=== PATIENT | male | born 1950 | race Caucasian/White ===

== ENCOUNTER → 2017-09-25 | Day surgery (SDC) | payer OTHER ==
[~2017-09-25] MED LIST: Lactated Ringers 1,000 ML IV SCH; Propofol 200 MG/20 ML SDV IV ONE
--- NOTE | 2017-09-25 14:17 | OR ---
DATE OF OPERATION: 09/25/2017 PREOPERATIVE DIAGNOSIS: FOLLOW UP POLYPS. POSTOPERATIVE DIAGNOSIS: FOLLOW UP POLYPS. SURGEON: Álvaro Savage MD PROCEDURE: FULL-LENGTH COLONOSCOPY. 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 COMPLICATIONS: None. SPECIMEN: None. FINDINGS: Normal full length colonoscopy. RECOMMENDATIONS: Follow up colonoscopy routine per ACS guidelines in five years due to family history of colon cancer. INDICATIONS: The patient has a history of multiple colonoscopies in the past with polyp removal. He is due for a routine followup in that regard. He also has a family history of colon cancer in his father. PROCEDURE: THE PATIENT WAS PREPPED AND DRAPED, PLACED IN THE LEFT LATERAL DECUBITUS POSITION. A LUBRICATED OLYMPUS COLONOSCOPE WAS INSERTED AND EASILY ADVANCED TO THE CECUM. DIRECT VISUALIZATION OF THE ILEOCECAL VALVE AND APPENDICEAL ORIFICE WAS ACCOMPLISHED. THE BOWEL PREP WAS ADEQUATE. UPON WITHDRAWAL, THROUGHOUT THE ENTIRE LENGTH OF THE COLON, I COULD FIND NO SIGNS OF ANY POLYPS, MASS, ULCERATION, OR BLEEDING SITES. NO VASCULAR ABNORMALITIES OR SIGNS OF COLITIS. THERE WERE NO SIGNIFICANT DIVERTICULA. THE RECTAL VAULT APPEARED BENIGN. RETROFLEXION OF THE SCOPE IN THE RECTUM SHOWED NO PERIANAL LESIONS. AIR WAS SUCTIONED, SCOPE REMOVED WITHOUT COMPLICATION. ADRIANNE/BEATRIS /[id number]
== END ==
LOC: CC.SDS 09:25
PROVIDERS: ATTEND Family Medicine
DX: Z12.11 Encounter for screening for malignant neoplasm of colon (principal); Z86.010 Personal history of colon polyps; G47.30 Sleep apnea, unspecified
CPT/HCPCS: 45378; 93005; J7120; J2704

== ENCOUNTER → 2021-10-25 | Day surgery (SDC) | payer MEDICARE, BC ==
[~2021-10-25] MED LIST changes: +Ketamine 200 MG/20 ML MDV ONE; -Propofol 200 MG/20 ML SDV IV ONE; +Propofol 200 MG/20 ML SDV ONE; +fentaNYL 100 MCG/2 ML SDV ONE
== END ==
LOC: CC.SDS 06:54
PROVIDERS: ATTEND Family Medicine
DX: Z12.11 Encounter for screening for malignant neoplasm of colon (principal); D12.3 Benign neoplasm of transverse colon; N40.0 Benign prostatic hyperplasia without lower urinary tract symptoms; G89.29 Other chronic pain; M54.50 Low back pain, unspecified; E11.40 Type 2 diabetes mellitus with diabetic neuropathy, unspecified; I10 Essential (primary) hypertension; E78.5 Hyperlipidemia, unspecified; R79.89 Other specified abnormal findings of blood chemistry; G47.33 Obstructive sleep apnea (adult) (pediatric); G47.00 Insomnia, unspecified; Z79.82 Long term (current) use of aspirin; Z79.899 Other long term (current) drug therapy; Z79.84 Long term (current) use of oral hypoglycemic drugs; Z80.0 Family history of malignant neoplasm of digestive organs; Z98.890 Other specified postprocedural states
CPT/HCPCS: 00812; 88305; J2704; J3010; J7120

== ENCOUNTER 2024-10-14 06:54 | Day surgery (SDC) | payer MEDICARE, BC ==
[2024-10-14] MEDS: Lactated Ringers 1,000 ML IV SCH (07:10)
[2024-10-14] MEDS ORDERED: Ketamine 200 MG/20 ML MDV ONE (07:32)
[2024-10-14] MEDS ORDERED: Midazolam 1 MG/ML 2 ML SDV ONE (07:32)
[2024-10-14] MEDS ORDERED: fentaNYL 50 MCG/ML SDV ONE (07:32)
[2024-10-14] MEDS ORDERED: Flumazenil 0.1 MG/ML 10 ML MDV ONE (07:32)
[2024-10-14] MEDS ORDERED: Propofol 200 MG/20 ML SDV ONE ×2 (07:32)
== END 2024-10-14 09:03 | disposition home or self-care (01) ==
LOC: CC.SDS 06:54
PROVIDERS: ATTEND Family Medicine
DX: Z12.11 Encounter for screening for malignant neoplasm of colon (principal); Z86.0100 Personal history of colon polyps, unspecified; I10 Essential (primary) hypertension; E11.9 Type 2 diabetes mellitus without complications; Z79.84 Long term (current) use of oral hypoglycemic drugs; Z79.899 Other long term (current) drug therapy
CPT/HCPCS: 00812; 99100; J2250; J2704; J3010; J3490; J7120

== ENCOUNTER 2025-02-16 17:41 | Emergency (ER) | payer MEDICARE, BC ==
[2025-02-16 18:19] LABS: BASOPHILS ABSOLUTE AUTO 0.03 10^3/uL (0.00-0.50); BASOPHILS PERCENT AUTO 0.4 % (0-1); EOSINOPHILS ABSOLUTE AUTO 0.19 10^3/uL (0.00-1.50); EOSINOPHILS PERCENT AUTO 2.4 % (0-6); HEMATOCRIT 42.5 % (42.0-52.0); HEMOGLOBIN 14.1 g/dL (14.0-18.0); IMMATURE GRAN ABSOLUTE AUTO 0.03 10^3/uL (0.00-0.49); IMMATURE GRAN PERCENT AUTO 0.4 % (0.0-4.9); LYMPHOCYTES ABSOLUTE AUTO 1.86 10^3/uL (0.60-5.00); LYMPHOCYTES PERCENT AUTO 23.6 % (24-44); MEAN CORPUSCULAR HGB CONC 33.2 g/dL (32.0-36.0); MEAN CORPUSCULAR VOLUME 90.4 fL (83.0-97.0); MONOCYTES ABSOLUTE AUTO 0.59 10^3/uL (0.00-1.50); MONOCYTES PERCENT AUTO 7.5 % (0-10); NEUTROPHILS ABSOLUTE AUTO 5.19 x10^3/uL (1.80-8.00); NEUTROPHILS PERCENT AUTO 65.7 % (41-71); PLATELET COUNT,PLT 181 10^3/uL (150-400); WHITE BLOOD CELL COUNT,WBC 7.9 10^3/uL (4.0-11.0)
[2025-02-16 18:42] LABS: ALANINE AMINOTRANSFERASE,ALT 34 U/L (12-78); ALBUMIN 3.6 g/dL (3.4-5.0); ALKALINE PHOSPHATASE 87 U/L (46-116); ASPARTATE AMNIOTRANSFERASE,AST 18 U/L (15-37); BILIRUBIN TOTAL 0.3 mg/dL (0.0-1.0); BLOOD UREA NITROGEN,BUN 20 mg/dL (7-18); CALCIUM 9.6 mg/dL (8.4-10.1); CARBON DIOXIDE,CO2 32 mmol/L (21-32); CHLORIDE,CL 102 mEq/L (98-106); CREATININE 1.1 mg/dL (0.7-1.3); ESTIMATED GFR 71 mL/min (>=60); ETHANOL BLOOD MEDICAL 20 mg/dL (0-3); GLUCOSE RANDOM 141 mg/dL (75-99); MAGNESIUM 1.8 mg/dL (1.8-2.4); PROTEIN TOTAL,TP 6.6 g/dL (6.4-8.2); SODIUM,NA 141 mEq/L (136-145)
[2025-02-16] MEDS: Diphtheria,Pertussis(Acell),Tetanus Vaccine 0.5 ML Syringe IM ONE (18:49)
[2025-02-16] MEDS: Lidocaine 1% with EPINEPHrine 1:100,000 10 ML MDV INJECT ONE (18:51)
[2025-02-16 21:34] LABS: APPEARANCE,URINE CLEAR (CLEAR); BILIRUBIN,URINE NEGATIVE (NEGATIVE); COLOR,URINE YELLOW (YELLOW); GLUCOSE,URINE NEGATIVE (NEGATIVE); KETONES,URINE 15 mg/dL (NEGATIVE); LEUKOCYTE ESTERASE,URINE NEGATIVE (NEGATIVE); NITRITE,URINE NEGATIVE (NEGATIVE); OCCULT BLOOD,URINE NEGATIVE (NEGATIVE); PH,URINE 5.5 (4.5-8.0); PROTEIN,URINE NEGATIVE (NEGATIVE); UROBILINOGEN,URINE 0.2 EU/dL (0.2-1.0)
== END 2025-02-16 21:51 | disposition home or self-care (01) ==
LOC: CC.ED 19:45
DX: S01.81XA Laceration without foreign body of other part of head, initial encounter (principal); S09.90XA Unspecified injury of head, initial encounter; Z23 Encounter for immunization; Z79.84 Long term (current) use of oral hypoglycemic drugs; Z79.899 Other long term (current) drug therapy; W18.40XA Slipping, tripping and stumbling without falling, unspecified, initial encounter
CPT/HCPCS: 12013; 36415; 70450; 71045; 72125; 80053; 80307; 81003; 83735; 84484; 85025; 90471; 90715; 93005; 99284-25